=== PATIENT | female | born 1950 ===

== ENCOUNTER 2018-12-29 16:30 | Outpatient (CLI) | payer MEDICARE, OTHER | END 2018-12-29 23:59 | disposition home or self-care (01) | LOC: LAB.R 16:30 | PROVIDERS: ATTEND Obstetrics & Gynecology | DX: L29.2 Pruritus vulvae (principal); R30.0 Dysuria | CPT/HCPCS: 87086 ==

== ENCOUNTER 2018-12-29 16:46 | Outpatient (CLI) | payer MEDICARE, OTHER ==
[2018-12-31 10:36] LABS: HSV 1 IGG TYPE SPECIFIC AB <0.90 index; HSV 2 IGG TYPE SPECIFIC AB <0.90 index
== END 2018-12-29 16:47 | disposition home or self-care (01) ==
LOC: LAB 16:46
PROVIDERS: ATTEND Obstetrics & Gynecology
DX: L29.2 Pruritus vulvae (principal); R30.0 Dysuria
CPT/HCPCS: 36415; 81599; 86695; 86696; 87086